=== PATIENT | female | born 1990 | race Caucasian/White ===

== ENCOUNTER → 2017-05-22 | Outpatient (REF) ==
[2017-05-22 19:01] LABS: HCG, SERUM QUANTITATIVE 1198 MIU/ML
== END ==
LOC: M LAB REF 17:49
DX: Z00.00 Encounter for general adult medical examination without abnormal findings (principal)

== ENCOUNTER → 2017-07-10 | Outpatient (CLI) | payer OTHER ==
[2017-07-10 15:58] LABS: BASO % 0.2 % (0.0-1.0); EOS # 0.1 10^3/uL (0.0-0.50); EOS % 0.7 % (0.0-3.0); HEMATOCRIT 39.8 % (36.0-47.0); IMMATURE GRANULOCYTE % 0.2 % (0-3.0); LYMPH # 3.1 10^3/uL (1.5-6.5); LYMPH % 30.8 % (24.0-44.0); MEAN CORPUSCULAR HEMOGLOBIN 30.5 pg (27.0-33.0); MEAN CORPUSCULAR HGB CONC 35.2 g/dl (32.0-36.5); MEAN CORPUSCULAR VOLUME 86.7 fl (80.0-96.0); MONO # 0.5 10^3/uL (0.0-0.8); NEUTROPHILS # 6.3 10^3/uL (1.8-7.7); NEUTROPHILS % 63.1 % (36.0-66.0); PLATELET COUNT, AUTOMATED 179 10^3/uL (150-450); RED BLOOD COUNT 4.59 10^6/uL (4.00-5.40); RED CELL DISTRIBUTION WIDTH 12.8 % (11.5-14.5)
[2017-07-10 16:08] LABS: APPEARANCE, URINE HAZY (CLEAR); BACTERIA, URINE AUTO NEGATIVE (NEGATIVE); BILIRUBIN, URINE AUTO NEGATIVE (NEGATIVE); BLOOD, URINE BLOOD NEGATIVE (NEGATIVE); CALCIUM OXALATE CRYSTALS MODERATE; COLOR, URINE YELLOW (YELLOW); GLUCOSE, URINE (UA) AUTO 1+ mg/dL (NEGATIVE); KETONE, URINE AUTO TRACE mg/dL (NEGATIVE); LEUKOCYTE ESTERASE, URINE AUTO TRACE (NEGATIVE); MUCUS, URINE SMALL (NEGATIVE); NITRITE, URINE AUTO NEGATIVE (NEGATIVE); PROTEIN, URINE AUTO NEGATIVE (NEGATIVE); RBC, URINE AUTO 6 /HPF (0-3); SPECIFIC GRAVITY URINE AUTO 1.033 (1.002-1.035); SQUAMOUS EPITHELIAL CELL UR AU 2 /HPF (0-6); UROBILINOGEN, URINE AUTO 0.2 mg/dL (0.0-2.0); WBC, URINE AUTO 1 /HPF (0-3)
[2017-07-13 09:31] LABS: RUBELLA IgG QUALITATIVE IMMUNE (IMMUNE)
[2017-07-13 09:32] LABS: HBsAg Prenatal NEGATIVE (NEGATIVE)
[2017-07-13 09:58] LABS: HEPATITIS C VIRUS ABY INDEX < 0.0 INDEX (<0.8)
[2017-07-13 12:30] LABS: HIV 1&2 SCREEN CENTAUR NEGATIVE (NEGATIVE)
[2017-07-14 08:06] LABS: HERPES ZOSTER, VARICELLA IgG 615 index (Immune >165)
== END ==
LOC: M LAB 15:20
DX: Z11.59 Encounter for screening for other viral diseases (principal)
CPT/HCPCS: 86762

== ENCOUNTER 2017-07-13 07:42 | Emergency (ER) | payer OTHER ==
[2017-07-13 08:39] LABS: BASO % 0.2 % (0.0-1.0); EOS % 0.4 % (0.0-3.0); HEMATOCRIT 41.8 % (36.0-47.0); HEMOGLOBIN 14.8 g/dl (12.0-15.5); IMMATURE GRANULOCYTE % 0.4 % (0-3.0); LYMPH # 1.9 10^3/uL (1.5-6.5); LYMPH % 23.5 % (24.0-44.0); MEAN CORPUSCULAR HEMOGLOBIN 30.6 pg (27.0-33.0); MEAN CORPUSCULAR HGB CONC 35.4 g/dl (32.0-36.5); MEAN CORPUSCULAR VOLUME 86.5 fl (80.0-96.0); MONO # 0.4 10^3/uL (0.0-0.8); MONO % 5.2 % (0.0-5.0); NEUTROPHILS # 5.7 10^3/uL (1.8-7.7); NEUTROPHILS % 70.3 % (36.0-66.0); PLATELET COUNT, AUTOMATED 183 10^3/uL (150-450); RED BLOOD COUNT 4.83 10^6/uL (4.00-5.40); RED CELL DISTRIBUTION WIDTH 12.8 % (11.5-14.5); WHITE BLOOD COUNT 8.1 10^3/uL (4.0-10.0)
[2017-07-13 08:42] LABS: KETONE, URINE AUTO RFX NEGATIVE (NEGATIVE); LEUKOCYTE ESTERASE UR AUTO RFX NEGATIVE (NEGATIVE); MUCUS, URINE RFX SMALL (NEGATIVE); NITRITE, URINE AUTO RFX NEGATIVE (NEGATIVE); RBC, URINE AUTO RFX 3 /HPF (0-3); SPECIFIC GRAVITY UR AUTO RFX 1.026 (1.002-1.035); SQUAM EPITHELIAL CELL UR AURFX 3 /HPF (0-6); WBC, URINE AUTO RFX 0 /HPF (0-3)
[2017-07-13 09:39] LABS: ANION GAP 8 MEQ/L (8-16); BLOOD UREA NITROGEN 8 MG/DL (7-18); CALCIUM LEVEL 8.7 MG/DL (8.5-10.1); CARBON DIOXIDE LEVEL 24 MEQ/L (21-32); CHLORIDE LEVEL 108 MEQ/L (98-107); CREATININE FOR GFR 0.59 MG/DL (0.55-1.30); GLOMERULAR FILTRATION RATE > 60.0 (>60); GLUCOSE, FASTING 87 MG/DL (70-100); HCG, SERUM QUANTITATIVE 37939 MIU/ML; POTASSIUM SERUM 4.2 MEQ/L (3.5-5.1); SODIUM LEVEL 140 MEQ/L (136-145)
== END 2017-07-13 10:50 | disposition home or self-care (01) ==
LOC: M ED 07:42
DX: O20.8 Other hemorrhage in early pregnancy (principal); Z3A.12 12 weeks gestation of pregnancy; Z79.899 Other long term (current) drug therapy
CPT/HCPCS: 76801

== ENCOUNTER → 2017-08-26 | Outpatient (CLI) | payer OTHER | LOC: M RAD 10:04 | DX: Z34.82 Encounter for supervision of other normal pregnancy, second trimester (principal) | CPT/HCPCS: 76811 ==

== ENCOUNTER → 2017-10-02 | Outpatient (REF) | payer OTHER | LOC: M SFHCLERA 10:45 | DX: J02.9 Acute pharyngitis, unspecified (principal) ==

== ENCOUNTER 2018-01-07 03:01 | Inpatient (IN) | payer OTHER ==
[2018-01-07] MEDS ORDERED: FENTANYL 2MCG/ML ROPIVACAINE 0.2% IN 0.9% NACL 200ML IVBAG As Ordered ×2 (04:34→05:33)
[2018-01-07 04:40] LABS: HEMATOCRIT 36.9 % (36.0-47.0); HEMOGLOBIN 12.7 g/dl (12.0-15.5); MEAN CORPUSCULAR HEMOGLOBIN 32.3 pg (27.0-33.0); MEAN CORPUSCULAR HGB CONC 34.4 g/dl (32.0-36.5); MEAN CORPUSCULAR VOLUME 93.9 fl (80.0-96.0); PLATELET COUNT, AUTOMATED 127 10^3/uL (150-450); RED BLOOD COUNT 3.93 10^6/uL (4.00-5.40); RED CELL DISTRIBUTION WIDTH 13.3 % (11.5-14.5); WHITE BLOOD COUNT 8.4 10^3/uL (4.0-10.0)
[2018-01-07] MEDS ORDERED: PENICILLIN G POTASSIUM 5 MU VIAL As Ordered (05:05)
[2018-01-07] MEDS ORDERED: REFRIGERATOR IV KEYS XX (05:30)
[2018-01-07] MEDS ORDERED: EPIDURAL/PCA KEYS XX (05:30)
[2018-01-07] MEDS ORDERED: NALOXONE INJ 0.4 MG/1 ML VIAL (J2310) IV (05:30)
[2018-01-07] MEDS ORDERED: diphenhydrAMINE INJ 50MG/ML VIAL (J1200) IV (05:30)
[2018-01-07] MEDS ORDERED: EPIDURAL COMMENT XX (05:30)
[2018-01-07] MEDS ORDERED: ONDANSETRON 4MG/2ML VIAL (J2405) IV (05:30)
[2018-01-07] MEDS ORDERED: OXYTOCIN 30 UNITS IN 0.9% NaCl 500ML IV BAG (J2590) As Ordered (05:47)
[2018-01-07 06:08] LABS: CORD GAS ABE A -0.5; CORD GAS HCO3 A 26.5 MEQ/L; CORD GAS O2 SAT A 60.5 %; CORD GAS PCO2 A 51.5 mmHg; CORD GAS PH A 7.329 UNITS; CORD GAS TCO2 A 28.1 MEQ/L
[2018-01-07 06:09] LABS: CORD GAS ABE V -0.4; CORD GAS HCO3 V 24.7 MEQ/L; CORD GAS O2 SAT V 83.2 %; CORD GAS PCO2 V 42.3 mmHg; CORD GAS PH V 7.385 UNITS; CORD GAS PO2 V 36.2 mmHg; CORD GAS SBC V 23.7 MEQ/L
[2018-01-07] MEDS ORDERED: PENICILLIN G POTASSIUM IV 5 MU in D5W MINI-BAG PLUS 100 ML IV (06:30)
[2018-01-07] MEDS ORDERED: OXYTOCIN INJ 10 UNITS/ML VIAL (J2590) As Ordered (06:44)
[2018-01-07] MEDS ORDERED: MEASLES,MUMPS,RUBELLA VACCINE INJ (MMR-II) (90707) SC (06:45)
[2018-01-07] MEDS ORDERED: ANUSOL HC CREAM 30GM TOP (06:45)
[2018-01-07] MEDS ORDERED: OXYTOCIN INJ 10 UNITS/ML VIAL (J2590) IV (06:45)
[2018-01-07] MEDS ORDERED: MOM 30ML SUSPENSION UDC PO (06:45)
[2018-01-07] MEDS ORDERED: DIBUCAINE 1% OINTMENT 30GM TOP (06:45)
[2018-01-07] MEDS ORDERED: ACETAMINOPHEN 500 MG TAB PO (06:45)
[2018-01-07] MEDS ORDERED: DOCUSATE SODIUM 100 MG CAP PO (06:45)
[2018-01-07] MEDS ORDERED: METHYLERGONOVINE MALEATE 0.2 MG TAB PO (06:45)
[2018-01-07] MEDS ORDERED: RHOGAM 300 MCG (1500 IU) INJ (J2790) IM (06:45)
[2018-01-07] MEDS: OXYTOCIN DRIP 30 UNITS in APPROPRIATE DILUENT 1 EA IV (06:46)
[2018-01-07] MEDS: LR 1,000 ML IV (19:04)
[2018-01-07] MEDS: LACTATED RINGER'S 1000 ML IV (19:04)
[2018-01-07] MEDS: FENTANYL/ROPIVACAINE/NACL BAG 200 ML EPIDURAL (19:04)
[2018-01-07] MEDS: PRENATAL VITAMINS CHEWABLE TABLET PO (19:05)
[2018-01-08] MEDS: IBUPROFEN 800 MG TAB PO (02:17)
[2018-01-08 06:58] LABS: HEMATOCRIT 36.8 % (36.0-47.0); HEMOGLOBIN 12.8 g/dl (12.0-15.5); MEAN CORPUSCULAR HEMOGLOBIN 32.3 pg (27.0-33.0); MEAN CORPUSCULAR HGB CONC 34.8 g/dl (32.0-36.5); MEAN CORPUSCULAR VOLUME 92.9 fl (80.0-96.0); PLATELET COUNT, AUTOMATED 119 10^3/uL (150-450); RED BLOOD COUNT 3.96 10^6/uL (4.00-5.40); RED CELL DISTRIBUTION WIDTH 13.3 % (11.5-14.5); WHITE BLOOD COUNT 11.6 10^3/uL (4.0-10.0)
[2018-01-08] MEDS: PRENATAL VITAMINS CHEWABLE TABLET PO (07:49)
[2018-01-09] MEDS: PRENATAL VITAMINS CHEWABLE TABLET PO (09:35)
== END 2018-01-09 11:55 | disposition home or self-care (01) | DRG 807 ==
LOC: M LDO 03:01 → M LDI 05:23 → M OBS 08:22
PROVIDERS: Obstetrics & Gynecology
PROC: 10E0XZZ Delivery of Products of Conception, External Approach (ICD-10-PCS; principal; 2018-01-07)
DX: O80 Encounter for full-term uncomplicated delivery (principal); Z37.0 Single live birth; Z3A.38 38 weeks gestation of pregnancy

== ENCOUNTER 2020-09-20 06:58 | Outpatient (RCR) | payer OTHER ==
[~2020-09-20 06:58] MED LIST: ANUS2.5C2 TOP; COLA100C5 PO; MAPA500T2 PO; MOTR200T44 PO; NUPE1OIN2 TOP; PRENTAB55 PO
== END 2020-09-29 ==
LOC: M PT 06:58
PROVIDERS: ATTEND Nurse Practitioner Primary Care
DX: M25.551 Pain in right hip (principal); M25.552 Pain in left hip; M54.5 Low back pain

== ENCOUNTER → 2020-10-30 | Outpatient (RCR) | payer OTHER | LOC: M PT 10-02 07:59 | PROVIDERS: ATTEND Nurse Practitioner Primary Care | DX: M54.5 Low back pain (principal); M25.551 Pain in right hip; M25.552 Pain in left hip | CPT/HCPCS: 97010; 97110; 97140; G0283 ==

== ENCOUNTER → 2020-11-29 | Outpatient (RCR) | payer OTHER | LOC: M PT 11-01 06:58 | PROVIDERS: ATTEND Nurse Practitioner Primary Care | DX: M54.5 Low back pain (principal); M25.551 Pain in right hip; M25.552 Pain in left hip | CPT/HCPCS: 97010; 97110; 97140; G0283 ==

== ENCOUNTER 2020-12-19 07:00 | Outpatient (RCR) | payer OTHER | END 2020-12-30 | LOC: M PT 07:00 | PROVIDERS: ATTEND Nurse Practitioner Primary Care | DX: M54.50 Low back pain, unspecified (principal); M25.551 Pain in right hip; M25.552 Pain in left hip ==